=== PATIENT | male | born 1975 | race African-American/Black ===

== ENCOUNTER 2023-01-12 15:13 | Observation (INO) | payer OTHER ==
[2023-01-12 16:43] LABS: Urine Blood Trace-intact (Negative); Urine Glucose Negative (Negative); Urine Protein Negative (Negative); Urine Specific Gravity <=1.005 (1.005-1.030)
[2023-01-12 16:46] LABS: Absolute Lymphocytes (CBC) 3.7 K/uL (0.7-4.9); Hematocrit 32.6 % (39.6-49.0); Lymphocytes % 60.5 % (15.3-44.8); MCV 87.9 fL (80-100); MPV 6.9 fL (7.6-11.3); RBC Red Blood Cell Count 3.71 M/uL (4.33-5.43)
[2023-01-12 16:47] LABS: Protime INR 1.16
[2023-01-12 16:58] LABS: Barbiturates NEGATIVE (NEGATIVE); Benzodiazepines NEGATIVE (NEGATIVE); Cocaine NEGATIVE (NEGATIVE); METHAMPHETAM NEGATIVE (NEGATIVE); Methadone NEGATIVE (NEGATIVE); Opiates NEGATIVE (NEGATIVE); Phencyclidine NEGATIVE (NEGATIVE); THC Cannibis NEGATIVE (NEGATIVE)
[2023-01-12 17:06] LABS: ALT/SGPT 31 U/L (16-61); AST/SGOT 33 U/L (15-37); Albumin 3.6 g/dL (3.4-5.0); Alkaline Phosphatase 54 U/L (45-117); BUN Blood Urea Nitrogen 8 mg/dL (7-18); Bicarbonate 25 mmol/L (21-32); Bilirubin Total 0.3 mg/dL (0.2-1.0); Glomerular Filtration Rate 102 ml/min (=/>90); Glucose Level 86 mg/dL (74-106); Magnesium 2.1 mg/dL (1.6-2.4); NT PRO-BNP 15 pg/mL (<125); Potassium 3.7 mmol/L (3.5-5.1); Protein, Total 7.2 g/dL (6.4-8.2); Sodium Level 133 mmol/L (136-145); Troponin High Sensitivity 7.2 pg/mL (<58.9)
[2023-01-12 17:07] LABS: Bilirubin Direct < 0.1 mg/dL (0-0.2)
--- NOTE | 2023-01-12 17:31 | RAD REPORT ---
EXAM DESCRIPTION: RAD - Chest Single View - 01/12/2023 5:26 pm CLINICAL HISTORY: syncope Chest pain. COMPARISON: No comparisons FINDINGS: Portable technique limits examination quality. The lungs are grossly clear. The heart is normal in size. No displaced fractures. IMPRESSION: No acute intrathoracic process suspected.
--- NOTE | 2023-01-12 17:40 | RAD REPORT ---
EXAM DESCRIPTION: CT - CTHCSPWOC - 01/12/2023 5:31 pm CLINICAL HISTORY: Trauma, head and neck injury. SYNCOPE COMPARISON: No comparisons TECHNIQUE: Axial 5 mm thick images of the head were obtained. Axial 2 mm thick images of the cervical spine were obtained with sagittal and coronal reconstruction images generated and reviewed. All CT scans are performed using dose optimization technique as appropriate and may include automated exposure control or mA/KV adjustment according to patient size. FINDINGS: CT HEAD WITHOUT CONTRAST: No acute hemorrhage, hydrocephalus or extra-axial collection is identified.No areas of brain edema. 2 2 mm mass is noted in the region of the sella. Fluid is present in the right maxillary antrum and right ethmoid air cells. The paranasal sinuses and mastoids are otherwise clear.The calvarium is intact. CT CERVICAL SPINE WITHOUT CONTRAST: No fracture or subluxation.Mild lower cervical spondylosis.No prevertebral soft tissues swelling is i dentified. IMPRESSION: No acute intracranial or cervical spine findings. 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 MRI brain would be sug gested for further evaluation.
--- NOTE | 2023-01-12 17:48 | RAD REPORT ---
EXAM DESCRIPTION: CT - Angio Aorta For Dissection - 01/12/2023 5:39 pm CLINICAL HISTORY: Chest pain radiating to the back. syncope COMPARISON: No comparisons TECHNIQUE: CT angiography of the aorta was performed with MIPs. All CT scans are performed using dose optimization technique as appropriate and may include automated exposure control or mA/KV adjustment according to patient size. FINDINGS: A left aortic arch is present with normal branching pattern of the great vessels.No acute aortic finding is seen such as aneurysm, penetrating ulcer or dissection. The celiac axis, SMA, ROSE and renal arteries are patent. No evidence of pulmonary embolism. Mild COPD. The liver demonstrates no focal mass or biliary dilatation.The spleen, pancreas, adrenal glands and k idneys are within normal limits for arterial phase imaging. No bowel obstruction, free fluid or abscess.Moderate stool is present in the colon. Sigmoid diverticu losis coli without diverticulitis.No pathologic enlarged lymphadenopathy identified.Normal appendix. No fracture or worrisome bone lesion seen. IMPRESSION: No acute aortic finding is demonstrated.
[2023-01-12] MEDS ORDERED: NA CHLORIDE 0.9% 1,000 ML ONE (17:49)
[2023-01-12 17:53] LABS: Blood Morphology Comment NOT SEEN (NOT SEEN); Platelet Estimate ADEQ
--- NOTE | 2023-01-12 18:35 | EDPHYS ---
Physician Documentation [facility] Name: Daquan Lyons III Age: 47 yrs Sex: Male : 1975 Arrival Date: 01/12/2023 Time: 15:15 Bed 5 Private MD: ED Physician Andrea Johnson HPI: 01/12 16:05 This 47 yrs old Black Male presents to ER via Wheelchair with complaints of Passed Out cp Prior To Arrival. 16:05 The patient has experienced syncope, collapsed. Onset: The symptoms/episode cp began/occurred just prior to arrival. Duration: This was a single episode, witness by sister who reports lasted less than 5 minutes. Context: occurred outdoors, Just prior to the episode the patient experienced sister reports observing patient clutch chest prior to falling over into garden. Historical: - Allergies: 15:54 Theraflu Sinus \T\ Cold; mb9 - Home Meds: 15:54 None [Active]; mb9 - PMHx: 15:54 None; mb9 - PSHx: 15:54 None; mb9 - Immunization history:: Adult Immunizations up to date. - Social history:: Smoking status: Patient reports the use of cigarette tobacco products, smokes one-half pack cigarettes per day. ROS: 16:10 Constitutional: Negative for body aches, chills, poor PO intake. cp 16:10 Neuro: Positive for altered mental status, syncope. cp Exam: 16:28 ECG was reviewed by the Attending Physician. cp Vital Signs: 15:51 BP 119 / 70; Pulse 65; Resp 18; Temp 97.9; Pulse Ox 99% ; Weight 89.36 kg; Height 6 ft. mb9 2 in. ; Pain 8/10; 16:04 BP 116 / 76; Pulse 65; Resp 16; Pulse Ox 98% on R/A; Pain 2/10; sg5 17:25 BP 102 / 79; Pulse 59; Resp 18; Pulse Ox 99% ; bp 18:25 Pulse 62; Resp 16; Pulse Ox 97% ; bp 15:51 Body Mass Index 25.29 (89.36 kg, 187.96 cm) mb9 15:51 Pain Scale: Adult mb9 16:04 Pain Scale: Adult sg5 MDM: 16:01 Patient medically screened. cp 01/12 16:01 Order name: EKG; Complete Time: 16:02 cp 01/12 16:01 Order name: O2 Per Protocol; Complete Time: 16:14 cp 01/12 16:01 Order name: O2 Sat Monitoring; Complete Time: 16:14 cp 01/12 16:01 Order name: Cardiac monitoring; Complete Time: 16:32 cp 01/12 16:01 Order name: EKG - Nurse/Tech; Complete Time: 16:32 cp 01/12 16:01 Order name: IV Saline Lock; Complete Time: 16:32 cp 01/12 16:01 Order name: Labs collected and sent; Complete Time: 16:32 cp 01/12 16:01 Order name: Urine Dipstick-Ancillary (obtain specimen); Complete Time: 16:38 cp 01/12 16:01 Order name: PT-INR; Complete Time: 17:20 cp 01/12 16:01 Order name: Magnesium; Complete Time: 17:20 cp 01/12 16:01 Order name: NT PRO-BNP; Complete Time: 17:20 cp 01/12 16:01 Order name: Basic Metabolic Panel; Complete Time: 17:20 cp 01/12 17:21 Interpretation: Normal except: NA 133. cp 01/12 16:01 Order name: UDS; Complete Time: 17:20 cp 01/12 17:21 Interpretation: Reviewed. cp 01/12 16:43 Order name: Urine Dipstick-Ancillary; Complete Time: 17:20 EDMS 01/12 16:43 Order name: ETOH Level; Complete Time: 17:36 cp 01/12 17:36 Interpretation: Abnormal: ETOH 39. cp 01/12 16:07 Order name: CK; Complete Time: 17:36 cp 01/12 17:36 Interpretation: Abnormal: CPK 1271. cp 01/12 16:01 Order name: XRAY Chest (1 view); Complete Time: 17:36 cp 01/12 17:36 Interpretation: Report review. cp 01/12 16:01 Order name: LFT's; Complete Time: 17:20 cp 01/12 17:36 Interpretation: Normal except: GLOB 3.6; A/G 1.0. cp 01/12 16:01 Order name: Troponin HS; Complete Time: 17:20 cp 01/12 17:37 Interpretation: Reviewed. cp 01/12 16:01 Order name: CT Head C Spine; Complete Time: 17:52 cp 01/12 17:30 Order name: CT Aorta for Dissection; Complete Time: 17:52 cp 01/12 16:01 Order name: CBC with Diff; Complete Time: 17:58 cp 01/12 17:21 Interpretation: Normal except: RBC 3.71; HGB 11.4; HCT 32.6; MPV 6.9; ENIO% 28.2; LYM% cp 60.5; NEUT A 1.7. 01/12 17:54 Order name: Manual Differential; Complete Time: 17:58 EDMS EC:28 Rate is 60 beats/min. Rhythm is regular. NJ interval is normal. QRS interval is normal. cp QT interval is normal. T waves are Inverted in leads aVR, V2, V3. Interpreted by me. Reviewed by me. 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 EDMS EDMS
--- NOTE | 2023-01-12 18:35 | ER ---
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 Ebola Screen: No symptoms or risks identified at this time. Initial Sepsis Screen: Does the patient meet any 2 criteria? No. Patient's initial sepsis screen is negative. Does the patient have a suspected source of infection? No. Patient's initial sepsis screen is negative. Risk Assessment: Do you want to hurt yourself or someone else? Patient reports no desire to harm self or others. Onset of symptoms was January 12, 2023. 15:51 Acuity: CROW 2 [facility] 15:51 Chief complaint: "he was working in the yard today, he grabbed his chest and called my mb9 name and fell to the ground. He was shaking when he fell. He isn't acting like himself. He hit is head and says his neck hurts.". Triage Assessment: 16:00 General: Appears distressed, Behavior is cooperative, appropriate for age, anxious, bp crying. Pain: Denies pain. EENT: No deficits noted. Neuro: Level of Consciousness is awake, obeys commands, Oriented to Appropriate for age. Cardiovascular: Rhythm is sinus bradycardia. Respiratory: No deficits noted. GI: No signs and/or symptoms were reported involving the gastrointestinal system. : No signs and/or symptoms were reported regarding the genitourinary system. Derm: No deficits noted. Musculoskeletal: No deficits noted. Historical: - Allergies: 15:54 Theraflu Sinus \\T\\ Cold; mb9 - Home Meds: 15:54 None [Active]; mb9 - PMHx: 15:54 None; mb9 - PSHx: 15:54 None; mb9 - Immunization history:: Adult Immunizations up to date. - Social history:: Smoking status: Patient reports the use of cigarette tobacco products, smokes one-half pack cigarettes per day. Screenin:04 [facility] ED Fall Risk Assessment (Adult) History of falling in the last 3 months, sg5 including since admission Yes- physiologic fall (2 pts). Abuse screen: Denies threats or abuse. Nutritional screening: No deficits noted. Tuberculosis screening: No symptoms or risk factors identified. Assessment: 15:51 Reassessment: C-Collar placed on pt in triage room. mb9 16:00 General: SEE TRIAGE NOTE. bp 17:25 Reassessment: PT TO CT. bp 18:25 Reassessment: Patient appears in no apparent distress at this time. Patient and/or bp family updated on plan of care and expected duration. Pain level reassessed. Vital Signs: 15:51 BP 119 / 70; Pulse 65; Resp 18; Temp 97.9; Pulse Ox 99% ; Weight 89.36 kg; Height 6 ft. mb9 2 in. ; Pain 8/10; 16:04 BP 116 / 76; Pulse 65; Resp 16; Pulse Ox 98% on R/A; Pain 2/10; sg5 17:25 BP 102 / 79; Pulse 59; Resp 18; Pulse Ox 99% ; bp 18:25 Pulse 62; Resp 16; Pulse Ox 97% ; bp 15:51 Body Mass Index 25.29 (89.36 kg, 187.96 cm) mb9 15:51 Pain Scale: Adult mb9 16:04 Pain Scale: Adult sg5 ED Course: 15:15 Patient arrived in ED. rg4 15:21 Emiliano Lopez PA is PHCP. cp 15:21 Andrea Johnson MD is Attending Physician. cp 15:54 Triage completed. mb9 15:55 Arm band placed on. mb9 16:04 Patient has correct armband on for positive identification. Bed in low position. Call sg5 light in reach. Side rails up X 1. Adult w/ patient. Valuables Left with patient. 16:14 Wu Mallory, RN is Primary Nurse. bp 16:30 Inserted saline lock: 20 gauge in right antecubital area, using aseptic technique. bp Blood collected. 17:28 XRAY Chest (1 view) In Process Unspecified. EDMS 17:33 CT Head C Spine In Process Unspecified. EDMS 17:41 CT Aorta for Dissection In Process Unspecified. EDMS 18:31 Jim Norman MD is Hospitalizing Provider. cp Administered Medications: 17:45 Drug: NS 0.9% IV 1000 ml Route: IV; Rate: 1 bolus; Site: right antecubital; bp Medication: 16:04 VIS not applicable for this client. sg5 Outcome: 18:34 Decision to Hospitalize by Provider. cp Signatures: Dispatcher [employer] EDMS Emiliano Lopez PA PA cp Garcia, Rubi rg4 Wu Mallory RN RN Jacy Vizcaino RN RN mb9 Rajani Singh RN RN sg5 Corrections: (The following items were deleted from the chart) 15:55 15:54 Allergies: No Known Allergies; mb9 mb9 15:56 15:51 Chief complaint: Patient states: "he was working in the yard today, he grabbed mb9 his chest and called my name and fell to the ground. He was shaking when he fell" mb9 15:56 15:51 Acuity: CROW 3 mb9 mb9 16:03 15:51 Chief complaint: "he was working in the yard today, he grabbed his chest and mb9 called my name and fell to the ground. He was shaking when he fell. He isn't acting like himself" mb9
--- NOTE | 2023-01-12 19:10 | P.HP ---
Certification for Inpatient Patient admitted to: Observation With expected LOS: <2 Midnights Patient will require the following post-hospital care: None Practitioner: I am a practitioner with admitting privileges, knowledge of patient current condition, hospital course, and medical plan of care. Services: Services provided to patient in accordance with Admission requirements found in Title 42 Section 412.3 of the Code of Federal Regulations Patient History Date of Service: 01/12/23 Reason for admission: Syncope History of Present Illness: 47-year-old otherwise healthy male was out doing yard work for approximately 30 minutes before he called out to his sister and clutched his chest followed by having a syncopal episode lasting approximately 2 to 3 minutes. Patient does not remember preceding events. He is now back to his baseline neuro status. He was evaluated in the emergency department EKG was without STEMI criteria or blocks initial high-sensitivity troponin 7.2 CPK elevated 1271 EtOH level was [address] angio for dissection was performed which was negative for acute findings, CT head C-spine was also performed which did reveal a 22 mm oblong mass in the sella turcica which may represent a pituitary macroadenoma. Patient is without neurological signs or symptoms/deficits, visual samuel are intact. Will admit under observation for syncope/ACS rule out. 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 moist/pink, EOMI, Sclerae nonicteric Neck: Supple, 2+ carotid pulse no bruit, No LAD, Without JVD or thyroid abnormality Respiratory: Clear to auscultation bilaterally, Normal air movement Cardiovascular: No edema, Regular rate/rhythm, Normal S1 S2 Capillary refill: <2 Seconds Gastrointestinal: Normal bowel sounds, No tenderness Musculoskeletal: No tenderness Integumentary: No rashes Neurological: Normal speech, Normal strength at 5/5 x4 extr, Normal tone, Normal affect - Studies Laboratory Data (last 24 hrs) 01/12/23 16:30: PT 12.8 H, INR 1.16 01/12/23 16:30: WBC 6.10, Hgb 11.4 L, Hct 32.6 L, Plt Count 224 01/12/23 16:30: Sodium 133 L, Potassium 3.7, BUN 8, Creatinine 0.94, Glucose 86, Magnesium 2.1, Total Bilirubin 0.3, AST 33, ALT 31, Alkaline Phosphatase 54 Assessment and Plan - Plan Assessment: Syncope Rhabdomyolysis 22 mm oblong mass in sella turcica Plan: Syncope Monitor on telemetry, trend troponins, echocardiogram ordered and cardiology consult in place. CT angiogram for dissection negative for acute aortic findings/PE. EKG without STEMI criteria or significant heart block pattern. Appreciate further input from cardiology. Rhabdomyolysis Mild, continue IV fluids overnight, repeat CPK in the morning. 22 mm oblong mass in sella turcica-Suspected macroadenoma Discussed at length with the patient, no neurological deficits are noted. Recommended outpatient evaluation by neurosurgery/endocrinology. Will provide patient with results from imaging as well. DVT PPX: Lovenox Code status: Full Discharge Plan: Home Plan to discharge in: 24 Hours - Advance Directives Does patient have a Living Will: No Does patient have a Durable POA for Healthcare: No - Code Status/Comfort Care Code Status Assessed: Yes (Full code) Critical Care: No Time Spent Managing Pts Care (In Minutes): 70
--- NOTE | 2023-01-12 19:59 | P.DS ---
Admission Date: 01/12/23 Discharge Date: 01/12/23 Disposition: AMA-LEFT AGAINST MEDICAL ADVIC Discharge Condition: FAIR Reason for Admission: Syncope Brief History of Present Illness: 47-year-old otherwise healthy male was out doing yard work for approximately 30 minutes before he called out to his sister and clutched his chest followed by having a syncopal episode lasting approximately 2 to 3 minutes. Patient does not remember preceding events. He is now back to his baseline neuro status. He was evaluated in the emergency department EKG was without STEMI criteria or blocks initial high-sensitivity troponin 7.2 CPK elevated 1271 EtOH level was [address] angio for dissection was performed which was negative for acute findings, CT head C-spine was also performed which did reveal a 22 mm oblong mass in the sella turcica which may represent a pituitary macroadenoma. Patient is without neurological signs or symptoms/deficits, visual samuel are intact. Will admit under observation for syncope/ACS rule out. Hospital Course: Shortly after admission I was called by ED staff and informed that patient had left AMA. I did not have the opportunity to speak with him prior to him leaving the facility, ED staff reports that they did have a discussion with him prior to him leaving recommending that he stat for further evaluation but he declined and walked out. Laboratory Data at Discharge: WBC 6.10 K/uL (4.3-10.9) 01/12/23 16:30 Hgb 11.4 g/dL (13.6-17.9) L 01/12/23 16:30 Hct 32.6 % (39.6-49.0) L 01/12/23 16:30 Plt Count 224 thou/uL (152-406) 01/12/23 16:30 PT 12.8 SECONDS (9.5-12.5) H 01/12/23 16:30 INR 1.16 01/12/23 16:30 Sodium 133 mmol/L (136-145) L 01/12/23 16:30 Potassium 3.7 mmol/L (3.5-5.1) 01/12/23 16:30 BUN 8 mg/dL (7-18) 01/12/23 16:30 Creatinine 0.94 mg/dL (0.70-1.30) 01/12/23 16:30 Glucose 86 mg/dL (74-106) 01/12/23 16:30 Magnesium 2.1 mg/dL (1.6-2.4) 01/12/23 16:30 Total Bilirubin 0.3 mg/dL (0.2-1.0) 01/12/23 16:30 AST 33 U/L (15-37) 01/12/23 16:30 ALT 31 U/L (16-61) 01/12/23 16:30 Alkaline Phosphatase 54 U/L (45-117) 01/12/23 16:30 Followup: NONE,NONE [Primary Care Provider] -
--- NOTE | 2023-01-13 12:36 | EKG ---
Test Date: 2023-01-12 Test Time: 16:22:53 Logistics Team Lead: BP MEASUREMENT RESULTS: Intervals: Rate: 60 DC: 166 QRSD: 80 QT: 430 QTc: 430 [place]: P: 66 DC: 166 QRS: 62 T: 55 INTERPRETIVE STATEMENTS: Normal sinus rhythm Nonspecific T wave abnormality Abnormal ECG No previous ECG available for comparison Electronically Signed On 01-13-23 12:35:01 CDT by Mariano [facility]
== END 2023-01-12 19:30 | disposition left against medical advice (07) ==
LOC: ER 15:13 → ERHOLD 18:44
PROVIDERS: ADMIT Internal Medicine; ATTEND Internal Medicine
DX: R55 Syncope and collapse (principal); M62.82 Rhabdomyolysis; R22.0 Localized swelling, mass and lump, head; F17.210 Nicotine dependence, cigarettes, uncomplicated; Z53.21 Procedure and treatment not carried out due to patient leaving prior to being seen by health care provider
CPT/HCPCS: 85025; 80048; 36415; 83735; 82550; 85610; 80076; 81003; 84484; 83880; 80307; 70450; 72125; 71275; 74175; 71045; Q9967; J7030; G0480; 93005

== ENCOUNTER → 2024-01-14 | Emergency (ER) | payer OTHER ==
[~2024-01-14] MED LIST: NA CHLORIDE 0.9% 1,000 ML ONE
--- OUTSIDE RECORDS SUMMARY | 2024-01-14 16:01 | XMS REPORT | Continuity of Care Document ---
Author Name Unknown Address [address] [facility] [address] [place] [address] [facility] thconnect Address [address] [facility] [address] [place] [address] Care Team Providers Care Special Client Bus Driver Name Role Phone Marshall Lees Attending Clinician Unavailable KNOW, DOES_NOT Admitting Clinician Unavailable Payers Payer Name Policy Type Policy Number Effective Date Expirati on Date Source Allergies, Adverse Reactions, Alerts Allergy Name Allergy Type Status Severity Reaction(s) Onset Date Inactive Date Treating Clinician Comments Source No Known Allergie s DA Active U 02-19 00:00: 00 [facility] Encounters Start Date/Time End Date/Time Encounter Type Admission Type Attending Clinicians Care Facility Care Department Encounter ID Source 2023-02-19 13:50:00 2023-02-19 14:33:00 Emergency EM Marshall Lees [facility] [id number] [address] [facility] Notes Date/Time Note Provider Source 2023-02-19 14:12:00 [id number] [facility] [address] [place] [id number] PATIENT NAME: EDGAR MARI ADMIT DATE: 02/19/23ACCOUNT NO: [id number] ROOM NO: AGE: 47 REPORT TYPE: eELECTROCARDIOGRAM SEX: M ADMITTING PHYSICIAN: ATTENDING PHYSICIAN: Order:[id number] Reason : BEHAVIORAL Test Date/Time Stamp:TueFeb 19 2023 14:12:58Blood Pressure : / mmHGVent. Rate : 074 BPM Atrial Rate : 074 BPM P-R Int : 150 ms QRS Dur : 086 ms QT Int : 402 ms P-R-T Axes : 063 066 047 degrees QTc Int : 446 ms Normal sinus rhythmNonspecific T wave abnormalityAbnormal ECGNo previous ECGs availableConfirmed by RONI DAILEY, EMILIO ([id number]) on 02/22/2023 6:29:48 PM Referred By: Self Referred Confirmed by:EMILIO TAMAYO MD at [id number] PATIENT NAME: EDGAR MARI .[id number] AVAvailable for patient [id number]
[2024-01-14 16:44] LABS: Absolute Lymphocytes (CBC) 1.6 K/uL (0.7-4.9); Absolute Monocytes 0.6 K/uL (0.1-1.3); Absolute Neutrophil 1.4 K/uL (1.8-8.0); Basophils % 0.9 % (0-1.3); Eosinophils % 1.2 % (0-4.4); Hemoglobin 12.3 g/dL (13.6-17.9); MCHC 35.2 g/dL (32.0-36.0); MCV 87.9 fL (80-100); MPV 7.2 fL (7.6-11.3); Monocytes % 17.2 % (3.3-12.3); Neutrophils % 36.7 % (41.7-73.7); Nucleated Red Blood Cells % 0.1 % (0-0); Platelets 203 thou/uL (152-406); RBC Red Blood Cell Count 3.99 M/uL (4.33-5.43); Red Cell Distribution Width 13.7 % (12.1-15.2)
[2024-01-14 16:48] LABS: SARS-CoV-2 Antigen CONTROL BLUE LINE VIS/BG OK; SARS-CoV-2 Antigen Rapid Res Negative (Negative)
[2024-01-14 16:55] LABS: Albumin 3.4 g/dL (3.4-5.0); Albumin/Globulin Ratio 0.8 (1.1-1.8); Anion Gap 12.7 mEq/L (5.0-15.0); Bilirubin Total 0.3 mg/dL (0.2-1.0); Globulin 4.2 g/dL (2.3-3.5); Protein, Total 7.6 g/dL (6.4-8.2)
--- NOTE | 2024-01-14 16:59 | RAD REPORT ---
EXAM DESCRIPTION: RAD - Chest Single View - 01/14/2024 4:36 pm CLINICAL HISTORY: Congestion;Cough Chest pain. COMPARISON: Chest Single View dated 01/12/2023 FINDINGS: Portable technique limits examination quality. Mild interstitial prominence, suggesting viral infection. The heart is normal in size. No displaced f ractures.
[2024-01-14 17:07] LABS: Potassium 3.7 mEq/L (3.5-5.1)
--- NOTE | 2024-01-14 17:25 | EDPHYS ---
Physician Documentation [facility] Name: Daquan Lyons III Age: 48 yrs Sex: Male : 1975 Arrival Date: 01/14/2024 Time: 15:52 Bed 5 Private MD: ED Physician South Sauer HPI: 01/13 17:24 This 48 yrs old Black Male presents to ER via Ambulatory with complaints of Diarrhea, sb4 Cough. 17:24 Patient reports 1 episode of vomiting 3 days ago, sporadic episodes of diarrhea, cough, sb4 congestion. No known fevers, no chest pain or shortness of breath. Denies any sick contacts. Historical: - Allergies: 16:11 Theraflu Sinus \T\ Cold; aa5 - Home Meds: 16:11 None [Active]; aa5 - PMHx: 16:11 None; aa5 - PSHx: 16:11 None; aa5 - Immunization history:: Adult Immunizations unknown. - Social history:: Smoking status: Patient reports the use of cigarette tobacco products. ROS: 17:24 Constitutional: Negative for fever, chills, and weight loss, sb4 17:24 ENT: Positive for sinus congestion, 17:24 Respiratory: Positive for cough, 17:24 Abdomen/GI: Positive for nausea, vomiting, and diarrhea, 17:24 All other systems are negative, Exam: 17:24 Constitutional: This is a well developed, well nourished patient who is awake, alert, sb4 and in no acute distress. Head/Face: Normocephalic, atraumatic. Eyes: Extra-ocular motions intact. Periorbital areas with no swelling, redness, or edema. ENT: Mucous membranes moist. Cardiovascular: Regular rate and rhythm with a normal S1 and S2. Respiratory: Lungs have equal breath sounds bilaterally, clear to auscultation and percussion. No rales, rhonchi or wheezes noted. No increased work of breathing, no retractions or nasal flaring. Abdomen/GI: Soft, non-tender, no distension. Skin: Warm, dry with normal turgor. Normal color with no rashes, no lesions, and no evidence of cellulitis. MS/ Extremity: Pulses equal, no cyanosis. Neurovascular intact. Full, normal range of motion. Neuro: Awake and alert, GCS 15, oriented to person, place, time, and situation. Motor strength 5/5 in all extremities. Sensory grossly intact. Vital Signs: 16:08 BP 123 / 73; Pulse 83; Resp 18 S; Temp 97.8(TE); Pulse Ox 95% on R/A; Weight 88.45 kg aa5 (R); Height 6 ft. 2 in. (R); 17:08 BP 110 / 70; Pulse 74; Resp 18; Pulse Ox 98% on R/A; mb9 16:08 Body Mass Index 25.04 (88.45 kg, 187.96 cm) aa5 MDM: 16:08 Patient medically screened. sb4 17:24 Differential diagnosis: viral Infection, bacterial infection, URI, bronchitis, sb4 pneumonia. Data reviewed: vital signs, nurses notes, lab test result(s), and as a result, I will discharge patient. Counseling: I had a detailed discussion with the patient and/or guardian regarding the historical points, exam findings, and any diagnostic results supporting the discharge/admit diagnosis, lab results, radiology results, to return to the emergency department if symptoms worsen or persist or if there are any questions or concerns that arise at home. 01/13 16:19 Order name: CBC with Diff; Complete Time: 16:46 sb4 01/13 16:19 Order name: CMP; Complete Time: 17:11 sb4 01/13 16:19 Order name: Lipase; Complete Time: 17:11 sb4 01/13 16:19 Order name: SARS RAPID; Complete Time: 16:51 sb4 01/13 16:19 Order name: Flu; Complete Time: 16:57 sb4 01/13 16:19 Order name: Chest Single View XRAY; Complete Time: 17:00 sb4 01/13 16:19 Order name: IV Saline Lock; Complete Time: 16:30 sb4 01/13 16:19 Order name: Labs collected and sent; Complete Time: 16:30 sb4 Administered Medications: 16:30 Drug: NS 0.9% IV 1000 ml IV at 1 bolus Per protocol; 1000 mL bolus Route: IV; Rate: 1 mb9 bolus; Site: right antecubital; 17:36 Follow up: Response: No adverse reaction; IV Status: Completed infusion mb9 Disposition: 19:10 Co-signature as Attending Physician, South Sauer MD I agree with the assessment and cp3 plan of care. Disposition Summary: 01/14/24 17:24 Discharge Ordered Notes: Location: Home sb4 Problem: new sb4 Symptoms: are unchanged sb4 Condition: Stable sb4 Diagnosis - Influenza A sb4 Followup: sb4 - With: Emergency Department - When: As needed - Reason: Trouble breathing, Worsening of condition Discharge Instructions: - Discharge Summary Sheet sb4 - Influenza, Adult, [id number] sb4 Forms: - Work release form sb4 - Thank You Letter sb4 - Patient Portal Instructions sb4 - Leadership Thank You Letter sb4 Signatures: Dispatcher [employer] South Antunez MD MD cp3 Sona Morton, RN RN aa5 Keisha Doe PA-C PA-C sb4 Jacy Coello, RN RN mb9
--- NOTE | 2024-01-14 17:25 | ER ---
Nurse's Notes [facility] Name: Daquan Lyons III Age: 48 yrs Sex: Male : 1975 Arrival Date: 01/14/2024 Time: 15:52 Bed 5 Private MD: Diagnosis: Influenza A Presentation: 01/13 16:08 Chief complaint: Patient states: Diarrhea x 3 days ago after eating [place] food. Pt aa5 reports vomited once 3 days ago and none since then. Pt also reports chest congestion, head congestion, and cough. 16:08 Coronavirus screen: congestion, cough unrelated to allergies. Ebola Screen: Patient aa5 denies travel to an Ebola-affected area in the 21 days before illness onset. Initial Sepsis Screen: Does the patient meet any 2 criteria? No. Patient's initial sepsis screen is negative. Does the patient have a suspected source of infection? No. Patient's initial sepsis screen is negative. Risk Assessment: Do you want to hurt yourself or someone else? Patient reports no desire to harm self or others. Onset of symptoms was December 2023. 16:08 Method Of Arrival: Ambulatory [facility] 16:08 Acuity: CROW 3 aa5 Triage Assessment: 16:14 General: Appears. mb9 Historical: - Allergies: 16:11 Theraflu Sinus \T\ Cold; aa5 - Home Meds: 16:11 None [Active]; aa5 - PMHx: 16:11 None; aa5 - PSHx: 16:11 None; aa5 - Immunization history:: Adult Immunizations unknown. - Social history:: Smoking status: Patient reports the use of cigarette tobacco products. Screenin:13 [facility] ED Fall Risk Assessment (Adult) History of falling in the last 3 months, mb9 including since admission No falls in past 3 months (0 pts) Confusion or Disorientation No (0 pts) Intoxicated or Sedated No (0 pts) Impaired Gait No (0 pts) Mobility Assist Device Used No (0 pt) Altered Elimination No (0 pt) Score/Fall Risk Level 0 - 2 = Low Risk Oriented to surroundings, Maintained a safe environment, Educated pt \T\ family on fall prevention, incl call for assistance when getting out of bed. Abuse screen: Denies threats or abuse. Nutritional screening: No deficits noted. Tuberculosis screening: No symptoms or risk factors identified. Assessment: 16:19 General: Appears in no apparent distress. Behavior is calm, cooperative. Pain: mb9 Complains of pain in abdomen Pain radiates to LLQ Pain Pain began 2-3 days ago. Is continuous. Neuro: [place] Agitation-Sedation Scale (RASS): 0 - Alert and Calm Level of Consciousness is awake, alert, obeys commands, Oriented to person, place, time, situation, Appropriate for age. Cardiovascular: Patient's skin is warm and dry. Respiratory: Airway is patent Respiratory effort is even, unlabored, Respiratory pattern is regular, symmetrical, Breath sounds are clear bilaterally. Respiratory: Reports cough that is. GI: Abdomen is round non-distended, Bowel sounds present X 4 quads. Abd is soft Abdomen is tender to palpation in left lower quadrant Reports diarrhea, nausea. : No signs and/or symptoms were reported regarding the genitourinary system. EENT: Reports nasal congestion. Derm: Skin is pink, warm \T\ dry. Musculoskeletal: Range of motion: intact in all extremities. Vital Signs: 16:08 BP 123 / 73; Pulse 83; Resp 18 S; Temp 97.8(TE); Pulse Ox 95% on R/A; Weight 88.45 kg aa5 (R); Height 6 ft. 2 in. (R); 17:08 BP 110 / 70; Pulse 74; Resp 18; Pulse Ox 98% on R/A; mb9 16:08 Body Mass Index 25.04 (88.45 kg, 187.96 cm) aa5 ED Course: 16:06 Patient arrived in ED. im 16:07 Keisha Doe PA-C is PHCP. sb4 16:07 South Sauer MD is Attending Physician. sb4 16:08 Arm band placed on. aa5 16:11 Triage completed. aa5 16:13 Jacy Coello, JULIANNE is Primary Nurse. mb9 16:13 Placed in gown. Bed in low position. Call light in reach. Side rails up X 1. Provided mb9 Education on: press call light if needing anything. Client placed on continuous cardiac and pulse oximetry monitoring. NIBP monitoring applied. Door closed. Noise minimized. Warm blanket given. 16:30 Flu Sent. mb9 16:30 SARS RAPID Sent. mb9 16:30 CBC with Diff Sent. mb9 16:30 CMP Sent. mb9 16:30 Lipase Sent. mb9 16:31 No provider procedures requiring assistance completed. Inserted saline lock: 20 gauge mb9 in right antecubital area, using aseptic technique. Blood collected. 16:37 Chest Single View XRAY In Process Unspecified. EDMS 17:36 IV discontinued, intact, bleeding controlled, No redness/swelling at site. Pressure mb9 dressing applied. Administered Medications: 16:30 Drug: NS 0.9% IV 1000 ml IV at 1 bolus Per protocol; 1000 mL bolus Route: IV; Rate: 1 mb9 bolus; Site: right antecubital; 17:36 Follow up: Response: No adverse reaction; IV Status: Completed infusion mb9 Medication: 16:13 VIS not applicable for this client. mb9 Outcome: 17:24 Discharge ordered by . [email or web address] 17:39 Discharged to home ambulatory, ld1 17:39 Condition: stable 17:39 Discharge instructions given to patient, Instructed on discharge instructions, follow up and referral plans. Demonstrated understanding of instructions, follow-up care, 17:39 Patient left the ED. ld1 Signatures: Dispatcher [employer] EDMS Sona Morton, RN RN aa5 Laney Patel RN RN ld1 Keisha Doe, PA-C PA-C [email or web address] Jacy Coello RN RN mb9 Yesenia Davies
[2024-01-14 18:32] VITALS: BP 110/70; TEMP 97.8; O2SAT 98
== END ==
LOC: ER 15:52
DX: J10.1 Influenza due to other identified influenza virus with other respiratory manifestations (principal); Z11.52 Encounter for screening for COVID-19; Z88.8 Allergy status to other drugs, medicaments and biological substances
CPT/HCPCS: 85025; 36415; 83690; 80053; 87804 ×2; 71045; 96360; 99284; 87811; J7030